=== PATIENT | female | born 1980 | race Asian ===

== ENCOUNTER 2021-01-19 20:31 | Emergency (ER) | payer OTHER, BC ==
[2021-01-19] MEDS ORDERED: HYDROcodone/Acetaminophen 10/325 mg Tablet ONE (22:08)
== END 2021-01-19 22:16 | disposition home or self-care (01) ==
LOC: ERS 20:31
DX: S62.522A Displaced fracture of distal phalanx of left thumb, initial encounter for closed fracture (principal); V49.50XA Passenger injured in collision with unspecified motor vehicles in traffic accident, initial encounter